=== PATIENT | male | born 1985 | race Caucasian/White ===

== ENCOUNTER 2020-03-13 09:00 | Outpatient (RCR) | payer BC ==
[2020-03-03 09:20] VITALS: BP 124/69; PULSE 71; TEMP 97.8
[2020-03-10 09:42] VITALS: BP 130/87; PULSE 73; TEMP 98.6
[~2020-03-13] VITALS: Ht 177.8 cm; Wt 77.6 kg
[~2020-03-13 09:00] MED LIST: BIKTARVY 50-201 EACH PO; VALCYTE450 MG PO
[2020-03-13 09:12] VITALS: BP 120/73; PULSE 70; TEMP 97.5
== END 2020-03-13 09:45 | disposition home or self-care (01) ==
LOC: EUO 09:00
DX: Z45.2 Encounter for adjustment and management of vascular access device (principal)